=== PATIENT | male | born 1955 | race Caucasian/White ===

== ENCOUNTER 2016-10-14 19:33 | Emergency (ER) | payer MEDICAID, OTHER ==
[2016-10-14 19:48] VITALS: BP 115/72; PULSE 67; RESP 16; TEMP 98; O2SAT 100
--- NOTE | 2016-10-14 21:36 | ED PDOC ---
Lower Extremity Pain/Injury Time Seen by Provider: 10/14/16 20:34 Chief Complaint (Nursing): Lower Extremity Problem/Injury Chief Complaint (Provider): Ankle and Posterior Left Leg Pain Onset/Duration Of Symptoms: Days Current Symptoms Are (Timing): Still Present Additional Complaint(s): Jorge Jha, a 60 year old male, presents to the ED complaining of ankle and posterior left lower leg pain x2-3 months. The patient states that the pain worsens with weight bearing. He states that he has taken aleve which has offered minimal relief. Patient reports that his last doctors visit was 1 year ago and at that time he had a full physical performed and everything came back normal. PMD: [facility] Past Medical History Reviewed: Historical Data, Nursing Documentation, Vital Signs Vital Signs: Last Vital Signs Temp 98.0 F 10/14/16 19:46 Pulse 67 10/14/16 19:46 Resp 16 10/14/16 19:46 BP 115/72 10/14/16 19:46 Pulse Ox 100 10/14/16 19:46 - Surgical History Surgical History: No Surg Hx - Family History Family History: States: No Known Family Hx - Social History Current smoker - smoking cessation education provided: No Alcohol: None Drugs: Denies - Home Medications Home Medications: Ambulatory Orders Medication Instructions Recorded Naproxen 500 mg PO Q12H PRN #20 ect 10/14/16 - Allergies Allergies/Adverse Reactions: Allergies Allergy/AdvReac Type Severity Reaction Status Date / Time No Known Allergies Allergy Verified 10/14/16 19:46 Review of Systems Musculoskeletal: Positive for: Leg Pain (posterior left leg pain), Other (left ankle pain) Physical Exam - Physical Exam Extremity: Positive for: Normal ROM (Full ROM of lower extremities), Tenderness (Posterior lower leg tenderness with ankle dorsal and flexion.) - ECG O2 Sat by Pulse Oximetry: 100 (RA) Pulse Ox Interpretation: Normal Medical Decision Making Medical Decision Makin Initial Impression: 43 year old male presenting with left ankle and posterior left leg pain Initial Plan: * RAD Ankle AP/LAT * US duplex Lower Extremities * Reevaluation No DVT on US No acute findings on x-ray. Scribe Attestation Documented by Rahel Langford acting as a scribe for Ophelia Graves PA-C. Scribe Attestation All medical record entries made by the Scribe were at my direction and personally dictated by me. I have reviewed the chart and agree that the record accurately reflects my personal performance of the history, physical exam, medical decision making, and the department course for this patient. I have also personally directed, reviewed, and agree with the discharge instructions and disposition. Disposition - Clinical Impression Clinical Impression: Lower leg pain - Patient ED Disposition Is Patient to be Admitted: No Counseled Patient/Family Regarding: Diagnosis, Need For Followup - Disposition Disposition: Routine/Home Disposition Time: 22:17 Condition: GOOD Prescriptions: Naproxen 500 mg PO Q12H PRN #20 ect PRN Reason: pain Instructions: Leg Pain (ED) Forms: [facility] (Macedonian)
--- NOTE | 2016-10-14 21:49 | US ---
EXAM: US Duplex Left Lower Extremity Veins EXAM DATE/TIME: 10/14/2016 8:51 PM CLINICAL HISTORY: 60 years old, male; Pain; Leg, lower; Left; Additional info: Left calf pain, posterior ankle pain TECHNIQUE: Real-time ultrasound scan of the veins of the left lower extremity with color Doppler flow, spectral waveform analysis and compression. COMPARISON: There are no prior studies for comparison. FINDINGS: Deep veins: Common femoral, superficial femoral, popliteal and posterior tibial veins were evaluated. All veins examined are compressible. There are no intraluminal filling defects. There is expected blood flow on Doppler imaging. There is change in waveform with augmentation. Impression: No deep venous thrombosis in the visualized vascular segments of the left lower extremity
--- NOTE | 2016-10-15 09:32 | RAD ---
PROCEDURE: Left Ankle Radiographs. HISTORY: ankle, calf pain x 3 months, getting worse COMPARISON: None FINDINGS: BONES: Normal. No fracture. JOINTS: Normal. No osteoarthritis. Ankle mortise maintained. Talar dome intact SOFT TISSUES: Normal. OTHER FINDINGS: None. IMPRESSION: No acute findings related to/accounting for the clinical presentation.
== END 2016-10-14 22:35 | disposition home or self-care (01) ==
LOC: H.ER 19:33
DX: M79.605 Pain in left leg (principal)

== ENCOUNTER 2017-04-21 11:03 | Emergency (ER) | payer MEDICAID, OTHER ==
[2017-04-21 11:12] VITALS: BMI 29.7
[2017-04-21] MEDS ORDERED: Sodium Chloride 0.9% 1,000 ML IV SCH (12:00)
[2017-04-21 12:14] LABS: BASO # 0.1 K/uL (0.0-0.2); BASO % 0.8 % (0.0-2.0); EOS # 0.3 K/uL (0.0-0.7); EOS % 3.7 % (0.0-4.0); HEMOGLOBIN 15.7 g/dL (12.0-18.0); LYMPH # 1.5 K/uL (1.0-4.3); LYMPH % 19.8 % (20.0-40.0); MEAN CELL VOLUME 87.9 fl (80.0-94.0); MEAN CORPUSCULAR HEMOGLOBIN 30.1 pg (27.0-31.0); MEAN CORPUSCULAR HGB CONC 34.3 g/dL (33.0-37.0); MEAN PLATELET VOLUME 8.3 fl (7.2-11.7); MONO % 12.5 % (0.0-10.0); NEUT # 4.9 K/uL (1.8-7.0); NEUT % 63.2 % (50.0-75.0); RBC 5.21 Mil/uL (4.40-5.90); RED CELL DISTRIBUTION WIDTH 13.8 % (11.5-14.5); WHITE BLOOD COUNT 7.8 K/uL (4.8-10.8)
[2017-04-21 12:21] LABS: PROTHROMBIN TIME 11.1 Seconds (9.8-13.1)
[2017-04-21 12:22] LABS: ALB/GLOB RATIO 1.1 (1.0-2.1); ALBUMIN 4.2 g/dL (3.5-5.0); ALT/SGPT 50 U/L (21-72); AST/SGOT 38 U/L (17-59); BLOOD UREA NITROGEN 24 mg/dl (9-20); CALCIUM 9.2 mg/dL (8.4-10.2); GFR AFRICAN-AMERICAN > 60; GFR NON-AFRICAN AMERICAN > 60; HDL CHOLESTEROL 60 MG/DL (30-70)
[2017-04-21 12:33] LABS: LDL CHOLESTEROL 94 mg/dL (0-129)
[2017-04-21 13:02] VITALS: RESP 19; O2SAT 98
--- NOTE | 2017-04-21 13:56 | CT ---
PROCEDURE: CT HEAD WITHOUT CONTRAST. HISTORY: acute visual change x12hrs ago COMPARISON: None available. TECHNIQUE: Axial computed tomography images were obtained through the head/brain without intravenous contrast. Radiation dose: Total exam DLP = 767.04 mGy-cm. This CT exam was performed using one or more of the following dose reduction techniques: Automated exposure control, adjustment of the mA and/or kV according to patient size, and/or use of iterative reconstruction technique. FINDINGS: HEMORRHAGE: No intracranial hemorrhage. BRAIN: No mass effect or edema. Minimal diffuse age-appropriate cerebral atrophy. No evidence of acute infarct. VENTRICLES: Unremarkable. No hydrocephalus. CALVARIUM: Unremarkable. PARANASAL SINUSES: Chronic ethmoid and sphenoid sinusitis. MASTOID AIR CELLS: Unremarkable as visualized. No inflammatory changes. OTHER FINDINGS: None. IMPRESSION: No intracranial mass, hemorrhage or evidence of acute infarct. Chronic ethmoid and sphenoid sinusitis. Otherwise unremarkable.
--- NOTE | 2017-04-21 14:12 | RAD ---
HISTORY: Code Stroke COMPARISON: No prior. FINDINGS: LUNGS: No active pulmonary disease. PLEURA: No significant pleural effusion identified, no pneumothorax apparent. CARDIOVASCULAR: Normal. OSSEOUS STRUCTURES: No significant abnormalities. VISUALIZED UPPER ABDOMEN: Normal. OTHER FINDINGS: None. IMPRESSION: No acute cardiopulmonary disease appreciated.
--- NOTE | 2017-04-21 14:52 | CP.PCM.CON ---
History of Present Illness - History of Present Illness History of Present Illness: 61 yr old male with pmh of hypertension, dm, otherwise healthy man who fell asleep and woke up in the middle of the night with acute blurriness of vision, that persists. has never had a stroke, exercises regularly, does not smoke or drink. There is no report of any new medications, head trauma or lifting of heavy weights. Past Patient History - Past Social History Smoking Status: Never Smoked - PSYCHIATRIC Hx Substance Use: No - SURGICAL HISTORY Hx Surgeries: No - ANESTHESIA Hx Anesthesia: No Meds Allergies/Adverse Reactions: Allergies Allergy/AdvReac Type Severity Reaction Status Date / Time No Known Allergies Allergy Verified 10/14/16 19:46 - Medications Medications: Current Medications Sodium Chloride (Sodium Chloride 0.9%) 1,000 mls @ 100 mls/hr IV .Q10H SMITH Last Admin: 04/21/17 14:26 Dose: 100 mls/hr Results - Vital Signs Recent Vital Signs: Last Vital Signs Temp 97 F L 04/21/17 12:17 Pulse 79 04/21/17 14:22 Resp 19 04/21/17 14:22 BP 100/65 04/21/17 14:22 Pulse Ox 98 04/21/17 14:22 - Labs Result Diagrams: 04/21/17 12:09 04/21/17 12:09 Labs: Laboratory Results - last 24 hr 04/21/17 04/21/17 04/21/17 12:09 12:09 12:09 WBC 7.8 RBC 5.21 Hgb 15.7 Hct 45.8 MCV 87.9 MCH 30.1 MCHC 34.3 RDW 13.8 Plt Count 280 MPV 8.3 Neut % (Auto) 63.2 Lymph % (Auto) 19.8 L [place] % (Auto) 12.5 H Eos % (Auto) 3.7 Baso % (Auto) 0.8 Neut # (Auto) 4.9 Lymph # (Auto) 1.5 [place] # (Auto) 1.0 H Eos # (Auto) 0.3 Baso # (Auto) 0.1 PT 11.1 INR 1.0 APTT 36.0 Sodium 142 Potassium 4.3 Chloride 102 Carbon Dioxide 25 Anion Gap 19 BUN 24 H Creatinine 0.7 L Est GFR ( Amer) > 60 Est GFR (Non-Af Amer) > 60 POC Glucose (mg/dL) Random Glucose 101 Calcium 9.2 Total Bilirubin 0.5 AST 38 ALT 50 Alkaline Phosphatase 70 Troponin I < 0.0120 Total Protein 8.0 Albumin 4.2 Globulin 3.8 Albumin/Globulin Ratio 1.1 Triglycerides 129 Cholesterol 188 LDL Cholesterol Direct 94 HDL Cholesterol 60 Blood Type Antibody Screen BBK History Checked 04/21/17 04/21/17 12:09 12:13 WBC RBC Hgb Hct MCV MCH MCHC RDW Plt Count MPV Neut % (Auto) Lymph % (Auto) [place] % (Auto) Eos % (Auto) Baso % (Auto) Neut # (Auto) Lymph # (Auto) [place] # (Auto) Eos # (Auto) Baso # (Auto) PT INR APTT Sodium Potassium Chloride Carbon Dioxide Anion Gap BUN Creatinine Est GFR ( Amer) Est GFR (Non-Af Amer) POC Glucose (mg/dL) 108 Random Glucose Calcium Total Bilirubin AST ALT Alkaline Phosphatase Troponin I Total Protein Albumin Globulin Albumin/Globulin Ratio Triglycerides Cholesterol LDL Cholesterol Direct HDL Cholesterol Blood Type Cancelled Antibody Screen Cancelled BBK History Checked Cancelled - Imaging and Cardiology CT scan - head Additional comment: ct head normal. Assessment & Plan - Assessment and Plan (Free Text) Assessment: 61 yr old male with very concerning symptoms for possible occipital stroke, differential of embolic occlusion of superior opthalmic arthery, with probable underlying carotid disease. We will obtain MRI/MRA Brain and start aspirin.Differential includes retinal detachment. Plan: 1. MRI MRA brain 2. aspirin 3. IF MRI Brain is normal, then patient will need to see retina specialist. Dr. Jose Md, DPN
--- NOTE | 2017-04-21 15:15 | ED PDOC ---
HPI:STROKE - Time Time: 11:55 - Historian Historian: Patient, Family - Chief Complaint Chief Complaint: Vision loss - Onset Date: 04/20/17 Time: 21:00 - Timing Timing: Currently Symptomatic - Radiation Radiation: None - Severity of pain Maximum severity:: Moderate Severity Current: Moderate - Quality of Pain Quality of Pain:: Pressure - Exacerbated by Exacerbated by:: Nothing - Relieved by Relieved by:: Nothing - TPA Positive for Contraindication: Yes Reason tPA is not being Administered: ongoing >4hrs and NIHSS <4 - Notes: Notes:: 61yo male arrives c/o bilateral visual changes sudden onset last night prior to bed, symptoms began when he experienced "flashing light" and now states has a difficult time reading his drivers license, or at distance. Wears glasses- last vision check 2yrs ago. Denies change speech, syncope, trauma, numbness, weakness , dizziness, incoordination or fever. NIHSS Stroke Scale - Date/Time Evaluation Performed Date Performed: 04/21/17 Time Performed: 11:30 When Was NIHSS Performed: Baseline - How Severe is the Stroke Level of Consciousness: 0=Alert LOC to Questions: 0=Both comments correct LOC to commands: 0=Obeys both correctly Best Gaze: 0=Normal Visual: 3=Bilateral Facial: 0=Normal Motor Arm - Left: 0=No drift Motor Arm - Right: 0=No drift Motor Leg - Left: 0=No drift Motor Leg - Right: 0=No drift Limb Ataxia: 0=Absent Sensory: 0=Normal Best Language: 0=No aphasia Dysarthia: 0=Normal articulation Extinction & Inattention (Neglect): 0=Normal, no object Score: 3 Severity Of Stroke: 1-4 = Minor Stroke rTPA Inclusion/Exclusion - Refusal of Treatment Patient Refused Treatment: No - Inclusion Criteria for Altepase Patient is 18 years or Older: No The Clinical Diagnosis of Ischemic Stroke That is Causing a Potentially Disabling Neurological Deficit: No Time of Onset is Well Established to be Less Than 270 Minute Before Treatment Would Begin: No Risk/Benefit Discussed With Patient/Family Member Present: No - Exclusion Criteria for Altepase Uncontrolled Hypertension at Time of Treatment (Systolic BP above 185 or Diastolic BP above 110 mmHg): No Active Internal Bleeding: No Known Bleeding Diathesis Including but Not Limited to: Platelets Below 100,000/ mm,PTT Above 40 sec After Heparin Use, Current Use of Oral Anitcoagulant With INR Greater Than 1.7 or PT Greater Than 15 secs: No Evidence of an Intracranial Hemorrhage: No Evidence of Major Acute Infarct With Signs Greater Than 1/3 MCA Territory: No Suspicion of Subarachnoid Hemorrhage on Pretreatment Evaluation Even if CT Head Negative For Hemorrhage: No - Warning to TPA With Conditions Following Conditions Weighed Against Anticipated Benefit: Yes Condition: Stroke Serevity Too Mild (also symptoms >4hrs) Past Medical History Reviewed: Historical Data, Nursing Documentation, Vital Signs Vital Signs: Last Vital Signs Temp 97 F L 04/21/17 12:17 Pulse 79 04/21/17 14:22 Resp 19 04/21/17 14:22 BP 100/65 04/21/17 14:22 Pulse Ox 98 04/21/17 14:22 - Medical History PMH: No Chronic Diseases - Family History Family History: States: Unknown Family Hx - Living Arrangements Living Arrangements: With Family - Social History Current smoker - smoking cessation education provided: No Alcohol: None - Home Medications Home Medications: Ambulatory Orders Medication Instructions Recorded Naproxen 500 mg PO Q12H PRN #20 ect 10/14/16 - Allergies Allergies/Adverse Reactions: Allergies Allergy/AdvReac Type Severity Reaction Status Date / Time No Known Allergies Allergy Verified 10/14/16 19:46 Review of Systems ROS Statement: Except As Marked, All Systems Reviewed And Found Negative Constitutional: Negative for: Fever, Chills Eyes: Positive for: Vision Change. Negative for: Pain, Conjunctivae Inflammation, Eyelid Inflammation, Redness ENT: Negative for: Nose Discharge, Throat Pain Cardiovascular: Negative for: Chest Pain, Palpitations Respiratory: Negative for: Cough Gastrointestinal: Negative for: Abdominal Pain Genitourinary Male: Negative for: Dysuria Musculoskeletal: Negative for: Neck Pain Skin: Negative for: Rash, Lesions, Jaundice Neurological: Negative for: Weakness, Numbness Psych: Negative for: Anxiety Physical Exam - Reviewed Nursing Documentation Reviewed: Yes Vital Signs Reviewed: Yes - Physical Exam Appears: Positive for: Well, Non-toxic, No Acute Distress Head Exam: Positive for: ATRAUMATIC, NORMAL INSPECTION, NORMOCEPHALIC Skin: Positive for: Normal Color, Warm, DRY Eye Exam: Positive for: Normal appearance, EOMI, PERRL. Negative for: Nystagmus , Periorbital swelling, Periorbital tenderness, Conjunctival injection, Scleral icterus ENT: Positive for: Normal ENT Inspection Neck: Positive for: Normal, Painless ROM Cardiovascular/Chest: Positive for: Regular Rate, Rhythm Respiratory: Positive for: CNT, Normal Breath Sounds Gastrointestinal/Abdominal: Positive for: Normal Exam, Bowel Sounds, Soft Back: Positive for: Normal Inspection Extremity: Positive for: Normal ROM Neurologic/Psych: Positive for: Alert, Oriented - Laboratory Results Result Diagrams: 04/21/17 12:09 04/21/17 12:09 - ECG O2 Sat by Pulse Oximetry: 98 Medical Decision Making Medical Decision Making: visual acuity performed labs/EKG/CT brain obtained neurology consult obtained Accession No. : [id number] Patient Name / ID : CESARIO AMES / [id number] Exam Date : 04/21/2017 13:27:17 ( Approved ) Study Comment : Sex / Age : M / 61Y Creator : Jeancarlos Perez MD Dictator : Jeancarlos Perez MD Director On Air : Manager Mail : Jeancarlos Perez MD Approver2 : Report Date : 04/21/2017 13:54:19 My Comment : PROCEDURE: CT HEAD WITHOUT CONTRAST. HISTORY: acute visual change x12hrs ago COMPARISON: None available. TECHNIQUE: Axial computed tomography images were obtained through the head/brain without intravenous contrast. Radiation dose: Total exam DLP = 767.04 mGy-cm. This CT exam was performed using one or more of the following dose reduction techniques: Automated exposure control, adjustment of the mA and/or kV according to patient size, and/or use of iterative reconstruction technique. FINDINGS: HEMORRHAGE: No intracranial hemorrhage. BRAIN: No mass effect or edema. Minimal diffuse age-appropriate cerebral atrophy. No evidence of acute infarct. VENTRICLES: Unremarkable. No hydrocephalus. CALVARIUM: Unremarkable. PARANASAL SINUSES: Chronic ethmoid and sphenoid sinusitis. MASTOID AIR CELLS: Unremarkable as visualized. No inflammatory changes. OTHER FINDINGS: None. IMPRESSION: No intracranial mass, hemorrhage or evidence of acute infarct. Chronic ethmoid and sphenoid sinusitis. Otherwise unremarkable. Given acute onset, bilateral symptoms although doesnt appear as hemianopsia, neurology consult obtained Dr Garcia saw patient recommended stat MRI/MRA, if negative refer to retina/ophtho Accession No. : [id number] Patient Name / ID : CESARIO AMES / [id number] Exam Date : 04/21/2017 15:45:18 ( Approved ) Study Comment : Sex / Age : M / 61Y Creator : Armando Arias MD Dictator : Armando Arias MD Director On Air : Manager Mail : Armando Arias MD Approver2 : Report Date : 04/21/2017 16:31:34 My Comment : PROCEDURE: MRI BRAIN WITHOUT CONTRAST HISTORY: acute visual loss COMPARISON: Unenhanced head CT 04/21/2017. TECHNIQUE: Multiplanar, multisequence MR images of the brain were obtained without intravenous contrast enhancement. FINDINGS: HEMORRHAGE: None DWI: No evidence of an acute or early subacute infarction. BRAIN PARENCHYMA: Diffuse cerebral atrophy is identified mildly. No suspicious signal abnormality is appreciated throughout the lopez and white matter structures on generalized or focal bases above or below the tentorium including throughout the brainstem. Trace chronic microangiopathy seen in the periventricular white matter related to the bilateral lateral ventricles minimally. Remaining white matter is normal in signal intensity. An empty sella is identified. Suprasellar cistern appears normal and the optic chiasm appears unremarkable grossly. No suspicious collections in the extra-axial spaces in the midline brain and appears normal. VENTRICLES: Unremarkable. No hydrocephalus. CRANIUM: Unremarkable. ORBITS: Grossly unremarkable. PARANASAL SINUSES/MASTOIDS: Active sinusitis is appreciated affecting the bilateral ethmoid and sphenoid sinuses primarily and minimally affecting the bilateral maxillary and frontal sinuses. VASCULAR SYSTEM: Skull base flow voids intact. OTHER FINDINGS: None. IMPRESSION: Limited age-related neuro degenerative change identified without acute intracranial findings including hemorrhage and infarction as discussed above. Incidental mild pansinusitis. Accession No. : [id number] Patient Name / ID : CESARIO AMES / [id number] Exam Date : 04/21/2017 15:34:27 ( Approved ) Study Comment : Sex / Age : M / 61Y Creator : Armando Arias MD Dictator : Armando Arias MD Director On Air : Manager Mail : Armando Arias MD Approver2 : Report Date : 04/21/2017 16:35:48 My Comment : PROCEDURE: Magnetic Resonance Angiography Brain HISTORY: acute visual loss COMPARISON: None available. TECHNIQUE: 3D time of flight MR angiography of the intracranial arteries was performed. Rotating maximum intensity projection images were generated. FINDINGS: INTERNAL CAROTID ARTERIES: Unremarkable. The skull base, petrous, cavernous and supraclinoid segments are bilaterally widely patient. ANTERIOR CEREBRAL ARTERIES: A hypoplastic right A1 MARILEE segment is identified which is nevertheless appears patent. The right A1 and bilateral A2 MARILEE segments are widely patent. Smaller distal branches unremarkable, as visualized. MIDDLE CEREBRAL ARTERIES: Unremarkable. M1 and M2 segments are widely patent. Perisylvian branches grossly symmetric. POSTERIOR CIRCULATION: Basilar Artery: An ectatic but widely patent basilar artery is identified. Distal Vertebral Arteries: Unremarkable. Posterior Cerebral Arteries: Unremarkable. Posterior Inferior Cerebellar Arteries: Unremarkable. ANEURYSM/ VASCULAR MALFORMATIONS: None. OTHER FINDINGS: None. IMPRESSION: Unremarkable MR angiography of the brain. To DC to have urgent followup w nikki. states she has an eye doctor whom she will take him to tomorrow morning. Offered environmental field technician Dr Ольга jordan stat consult also. Disposition - Clinical Impression Clinical Impression: Visual loss - Patient ED Disposition Is Patient to be Admitted: No Counseled Patient/Family Regarding: Studies Performed, Diagnosis, Need For Followup - Disposition Referrals: Mio Rolon MD [Staff Provider] - Disposition: Routine/Home Disposition Time: 17:40 Condition: STABLE Additional Instructions: See eye doctor for full exam within next 1-2 days. Return to ER for any worse or new symptoms. MRI results: Accession No. : [id number] Patient Name / ID : CESARIO AMES / [id number] Exam Date : 04/21/2017 15:45:18 ( Approved ) Study Comment : Sex / Age : M / 61Y Creator : Armando Arias MD Dictator : Armando Arias MD Director On Air : Manager Mail : Armando Arias MD Approver2 : Report Date : 04/21/2017 16:31:34 My Comment : PROCEDURE: MRI BRAIN WITHOUT CONTRAST HISTORY: acute visual loss COMPARISON: Unenhanced head CT 04/21/2017. TECHNIQUE: Multiplanar, multisequence MR images of the brain were obtained without intravenous contrast enhancement. FINDINGS: HEMORRHAGE: None DWI: No evidence of an acute or early subacute infarction. BRAIN PARENCHYMA: Diffuse cerebral atrophy is identified mildly. No suspicious signal abnormality is appreciated throughout the lopez and white matter structures on generalized or focal bases above or below the tentorium including throughout the brainstem. Trace chronic microangiopathy seen in the periventricular white matter related to the bilateral lateral ventricles minimally. Remaining white matter is normal in signal intensity. An empty sella is identified. Suprasellar cistern appears normal and the optic chiasm appears unremarkable grossly. No suspicious collections in the extra-axial spaces in the midline brain and appears normal. VENTRICLES: Unremarkable. No hydrocephalus. CRANIUM: Unremarkable. ORBITS: Grossly unremarkable. PARANASAL SINUSES/MASTOIDS: Active sinusitis is appreciated affecting the bilateral ethmoid and sphenoid sinuses primarily and minimally affecting the bilateral maxillary and frontal sinuses. VASCULAR SYSTEM: Skull base flow voids intact. OTHER FINDINGS: None. IMPRESSION: Limited age-related neuro degenerative change identified without acute intracranial findings including hemorrhage and infarction as discussed above. Incidental mild pansinusitis. Instructions: Presbyopia and Refractive Errors Forms: [facility] (Chinese)
--- NOTE | 2017-04-21 15:57 | MRI ---
PROCEDURE: MR Angiography of the neck without contrast HISTORY: acute visual loss COMPARISON: None available. TECHNIQUE: 3D [id number] angiography of the neck was performed. Rotating maximum intensity projection images of the cervical carotid and vertebral arteries were generated. The origins of the common carotid arteries were not visualized, which is a limitation inherent to the non-contrast time of flight technique. FINDINGS: RIGHT CAROTID ARTERIES: Common Carotid Artery: Widely patent without significant stenosis identified. Carotid Bifurcation: Widely patent without significant stenosis identified. Internal Carotid Artery:Widely patent without significant stenosis identified. External Carotid Artery (proximal branches): Widely patent without significant stenosis identified. LEFT CAROTID ARTERIES: Common Carotid Artery: Widely patent without significant stenosis identified. Carotid Bifurcation: Widely patent without significant stenosis identified. Internal Carotid Artery:Widely patent without significant stenosis identified. External Carotid Artery (proximal branches): Widely patent without significant stenosis identified. VERTEBRAL ARTERIES: Right Vertebral Artery: Widely patent without significant stenosis identified. Left Vertebral Artery: Widely patent without significant stenosis identified. OTHER FINDINGS: None. IMPRESSION: Unremarkable MR Angiography of the neck.
--- NOTE | 2017-04-21 16:33 | MRI ---
PROCEDURE: MRI BRAIN WITHOUT CONTRAST HISTORY: acute visual loss COMPARISON: Unenhanced head CT 04/21/2017. TECHNIQUE: Multiplanar, multisequence MR images of the brain were obtained without intravenous contrast enhancement. FINDINGS: HEMORRHAGE: None DWI: No evidence of an acute or early subacute infarction. BRAIN PARENCHYMA: Diffuse cerebral atrophy is identified mildly. No suspicious signal abnormality is appreciated throughout the lopez and white matter structures on generalized or focal bases above or below the tentorium including throughout the brainstem. Trace chronic microangiopathy seen in the periventricular white matter related to the bilateral lateral ventricles minimally. Remaining white matter is normal in signal intensity. An empty sella is identified. Suprasellar cistern appears normal and the optic chiasm appears unremarkable grossly. No suspicious collections in the extra-axial spaces in the midline brain and appears normal. VENTRICLES: Unremarkable. No hydrocephalus. CRANIUM: Unremarkable. ORBITS: Grossly unremarkable. PARANASAL SINUSES/MASTOIDS: Active sinusitis is appreciated affecting the bilateral ethmoid and sphenoid sinuses primarily and minimally affecting the bilateral maxillary and frontal sinuses. VASCULAR SYSTEM: Skull base flow voids intact. OTHER FINDINGS: None. IMPRESSION: Limited age-related neuro degenerative change identified without acute intracranial findings including hemorrhage and infarction as discussed above. Incidental mild pansinusitis.
--- NOTE | 2017-04-21 16:37 | MRI ---
PROCEDURE: Magnetic Resonance Angiography Brain HISTORY: acute visual loss COMPARISON: None available. TECHNIQUE: 3D time of flight MR angiography of the intracranial arteries was performed. Rotating maximum intensity projection images were generated. FINDINGS: INTERNAL CAROTID ARTERIES: Unremarkable. The skull base, petrous, cavernous and supraclinoid segments are bilaterally widely patient. ANTERIOR CEREBRAL ARTERIES: A hypoplastic right A1 MARILEE segment is identified which is nevertheless appears patent. The right A1 and bilateral A2 MARILEE segments are widely patent. Smaller distal branches unremarkable, as visualized. MIDDLE CEREBRAL ARTERIES: Unremarkable. M1 and M2 segments are widely patent. Perisylvian branches grossly symmetric. POSTERIOR CIRCULATION: Basilar Artery: An ectatic but widely patent basilar artery is identified. Distal Vertebral Arteries: Unremarkable. Posterior Cerebral Arteries: Unremarkable. Posterior Inferior Cerebellar Arteries: Unremarkable. ANEURYSM/ VASCULAR MALFORMATIONS: None. OTHER FINDINGS: None. IMPRESSION: Unremarkable MR angiography of the brain.
[2017-04-21 18:36] VITALS: BP 128/78; PULSE 78; TEMP 98
--- NOTE | 2017-04-22 15:04 | CARD ---
APPROVED REPORT EKG Measurement Heart [id number] <Conclusion> Normal sinus rhythm Pulmonary disease pattern Incomplete right bundle branch block Left anterior fascicular block Abnormal ECG
== END 2017-04-21 18:37 | disposition home or self-care (01) ==
LOC: H.ER 11:03
DX: H54.7 Unspecified visual loss (principal); E11.9 Type 2 diabetes mellitus without complications; I10 Essential (primary) hypertension
CPT/HCPCS: 70450; 70544; 70548; 70551; 71045; 80053; 80061; 82948; 83036; 84484; 85025; 85610; 85730; 93005; 99284; J7040